=== PATIENT | female | born 1990 | race African-American/Black ===

== ENCOUNTER 2017-07-25 20:53 | Emergency (ER) | payer BC ==
--- NOTE | 2017-07-26 07:32 | ULT ---
FIRST TRIMESTER OBSTETRICAL ULTRASOUND: INDICATION: Followup examination. COMPARISON: Prior exam dated 07/23/17. FINDINGS: Thee is a single intrauterine gestation containing pole and yolk sac. Small subchorionic hemo rrhage is seen along the anterior and superior aspects of the gestational sac. They are similar in size to the prior exam. No heart tones are seen. The uterus measures 7.3 x 4.4 x 5.6 cm. The right ovary measures 2.5 x 1.5 x 2.8 cm. There is norm al flow to the right ovary. The left ovary is not seen. Estimated gestational age by ultrasound is 6 weeks and 0 days. Estimated due date by ultrasound is 03/20/08. IMPRESSION: 1. Single intrauterine gestational sac containing yolk sac and pole without associated heart tones. Estimated gestational age by ultrasound is 6 weeks and 0 days. 2. Small subchorionic hemorrhage seen along the superior aspect of the gestational sac appears mauro lar to the comparison study. POS: [facility]
== END 2017-07-26 00:04 | disposition home or self-care (01) ==
LOC: ERS 20:53
DX: O20.9 Hemorrhage in early pregnancy, unspecified (principal); Z3A.01 Less than 8 weeks gestation of pregnancy
CPT/HCPCS: 36415; 76856; 84702

== ENCOUNTER 2017-07-30 09:58 | Emergency (ER) | payer BC ==
[2017-07-30] MEDS ORDERED: Ondansetron ODT 4 MG TAB ONE (10:10)
== END 2017-07-30 11:37 | disposition home or self-care (01) ==
LOC: ERS 09:58
DX: O21.9 Vomiting of pregnancy, unspecified (principal); Z3A.01 Less than 8 weeks gestation of pregnancy
CPT/HCPCS: 99283; Q0162

== ENCOUNTER 2017-10-17 07:16 | Emergency (ER) | payer BC, OTHER, SELFPAY ==
[2017-10-17] MEDS ORDERED: Diazepam 5 MG TAB ONE (08:25)
[2017-10-17] MEDS ORDERED: Ketorolac Tromethamine 60 MG/2 ML VIAL ONE (08:26)
--- NOTE | 2017-10-17 09:26 | CT ---
CT OF CERVICAL SPINE WITHOUT CONTRAST: INDICATION: A 27-year-old female with severe left neck pain and spasm since 0530 this morning. The patient was s itting at a computer at work and had mild neck soreness for the past couple of days. The patient rep orts tingling in the left arm that has since resolved. The patient denies any injury. The pain is a ggravated with any movement. The patient denies any visual changes, back pain, or headache or other complaints. FINDINGS: There is some reversal of the normal cervical lordosis likely related to positioning. No acute fract ure or subluxation is evident. Craniocervical junction is normal-appearing. The prevertebral soft t issues appear within normal limits. Lung apices are clear. The visualized mastoid air cells are karlie ar. IMPRESSION: No acute abnormality. POS: [facility]
== END 2017-10-17 10:09 | disposition home or self-care (01) ==
LOC: ERS 07:16
DX: M62.838 Other muscle spasm (principal)
CPT/HCPCS: 72125; 96372; J1885

== ENCOUNTER 2018-03-04 07:51 | Emergency (ER) | payer OTHER, SELFPAY ==
[2018-03-04 08:50] LABS: Pregnancy Test - Urine (BHCG) Negative (Negative); Pregu Control Background? CLEAR/WHITE (CLR/WHITE); Pregu Control Bar Appear? YES (CONTROL BAR); Specific Gravity 1.032 (1.002-1.036)
--- NOTE | 2018-03-04 10:13 | RAD ---
RADIOGRAPH LEFT HIP TWO VIEWS: 03/04/2018 HISTORY: A 27-year-old female with chronic left hip pain. COMPARISON: None available. FINDINGS: There are two metallic pins in the left iliac bone, superior to the left acetabulum, medial to a tracy icated, irregularly-shaped, shallow osseous defect located lateral to the supraacetabular iliac bone. The medial aspect of at least one of the pins protrudes at least 2 cm medial to the medical cortica l bone, into the soft tissues of the pelvic ring. The entire pelvic ring is somewhat elongated in th e craniocaudal dimension and somewhat foreshortened in the transverse dimension. Fajardo's crook metallic plate with three screws is embedded in the bone of the intertrochanteric an d subtrochanteric proximal femur, with overlying osseous thickening. Femoral head contour is [place]. No significant hip joint space narrowing. No large subcapital osteophytes. IMPRESSION: 1. Status post open reduction and internal fixation of left proximal femur. 2. Pins within the left ilium, superior to the acetabulum, medial to a chronic osseous defect. 3. Atypical shape of the pelvic ring. POS: [facility]
[2018-03-04] MEDS ORDERED: Acetaminophen/Codeine 30-300mg Tablet ONE (10:32)
== END 2018-03-04 10:49 | disposition home or self-care (01) ==
LOC: ERS 07:51
DX: M25.552 Pain in left hip (principal)
CPT/HCPCS: 81025

== ENCOUNTER 2018-12-16 14:24 | Emergency (ER) | payer OTHER, SELFPAY ==
[2018-12-16] MEDS ORDERED: Ondansetron ODT 4 MG TAB ONE (15:02)
== END 2018-12-16 15:53 | disposition home or self-care (01) ==
LOC: ERS 14:24
DX: R07.2 Precordial pain (principal); I10 Essential (primary) hypertension; E03.9 Hypothyroidism, unspecified; F32.9 Major depressive disorder, single episode, unspecified; Z79.899 Other long term (current) drug therapy
CPT/HCPCS: 87081; 87430; 99283; Q0162

== ENCOUNTER 2021-03-28 06:19 | Emergency (ER) | payer SELFPAY ==
[2021-03-28] MEDS ORDERED: Ondansetron PF 4 MG/2 ML Vial ONE (07:12)
[2021-03-28] MEDS ORDERED: Clindamycin/D5W 900 mg/50 ml Premix Bag ONE (07:12)
[2021-03-28] MEDS ORDERED: Dexamethasone 4 MG TAB ONE (07:12)
[2021-03-28] MEDS ORDERED: Morphine 4 MG/ML VIAL ONE (07:12)
[2021-03-28 07:33] LABS: #Basophils 0.1 thou/uL (0.0-0.2); #Eosinphils 0.1 thou/uL (0.0-0.7); #Lymphocytes 1.4 thou/uL (1.20-3.40); #Monocytes 0.6 thou/uL (0.11-0.59); %Basophils 0.6 % (0.0-1.0); %Eosinophils 0.8 % (0.0-10.0); %Lymphocytes 15.4 % (21.0-51.0); %Monocytes 6.5 % (0.0-10.0); %Neutrophils 76.8 % (42.0-75.0); Hemoglobin 12.8 g/dL (12.0-16.0); Mean Corpuscular HGB CONC 33.8 g/dL (32.0-36.0); Mean Corpuscular Hemoglobin 30.1 pg (27.0-31.0); Mean Corpuscular Volume 89.1 fL (78.0-98.0); Mean Platelet Volume 9.5 fL (7.4-10.4); Platelet Count 217 thou/uL (130-400); RBC Distribution Width 11.5 % (11.5-14.5); Red Blood Cell (RBC) Count 4.26 mill/uL (4.20-5.40); White Blood Cell (WBC) Count 9.1 thou/uL (4.8-10.8)
[2021-03-28 08:02] LABS: ALT (SGPT) 12 U/L (8-55); AST (SGOT) 14 U/L (5-34); Alkaline Phosphatase 56 U/L (40-110); Anion Gap 12 mmol/L (10-20); BUN (Urea Nitrogen) 6 mg/dL (7.0-18.7); Bilirubin, Total 0.4 mg/dL (0.2-1.2); Calc. Creatinine Clearance 0 mL/min (70-130); Calcium 8.5 mg/dL (7.8-10.44); Carbon Dioxide 27 mmol/L (22-29); Chloride 104 mmol/L (98-107); Globulin 3.4 g/dL (2.4-3.5); Glucose 91 mg/dL (70-105); Potassium 3.9 mmol/L (3.5-5.1); Protein, Total 7.4 g/dL (6.0-8.3); Sodium 139 mmol/L (136-145)
== END 2021-03-28 09:02 | disposition home or self-care (01) ==
LOC: ERS 06:19
DX: K08.89 Other specified disorders of teeth and supporting structures (principal); R22.0 Localized swelling, mass and lump, head; M27.2 Inflammatory conditions of jaws; Z79.899 Other long term (current) drug therapy
CPT/HCPCS: 36415; 80053; 85025; 96365; 96375; J2270; J2405; J3490; J8540

== ENCOUNTER 2021-10-29 20:58 | Emergency (ER) | payer OTHER, SELFPAY ==
[2021-10-29] MEDS ORDERED: Acetaminophen 500 MG TAB ONE (22:39)
[2021-10-29] MEDS ORDERED: Ondansetron ODT 4 MG TAB ONE (22:39)
[2021-10-30 14:02] LABS: SARS-CoV-2 PCR by NAA DETECTED (NotDetected)
== END 2021-10-29 22:55 | disposition home or self-care (01) ==
LOC: ERS 20:58
DX: U07.1 COVID-19 (principal)
CPT/HCPCS: 99284; Q0162; U0003; U0005

== ENCOUNTER 2021-12-03 19:30 | Emergency (ER) | payer SELFPAY ==
[2021-12-03] MEDS ORDERED: Amoxicillin/Potassium Clav 875 MG TAB ONE (21:42)
[2021-12-03] MEDS ORDERED: Boostrix 0.5 ML (Tdap) VIAL ONE (21:42)
[2021-12-03] MEDS ORDERED: HYDROcodone/Acetaminophen 7.5/325 mg Tablet ONE (21:42)
== END 2021-12-03 23:10 | disposition home or self-care (01) ==
LOC: ERS 19:30
DX: S81.812A Laceration without foreign body, left lower leg, initial encounter (principal); W54.0XXA Bitten by dog, initial encounter; Z23 Encounter for immunization
CPT/HCPCS: 90471; 90715

== ENCOUNTER 2022-11-21 17:29 | Emergency (ER) | payer SELFPAY ==
[2022-11-21] MEDS ORDERED: Ketorolac Tromethamine 30 MG/ML VIAL ONE (18:33)
== END 2022-11-21 18:50 | disposition home or self-care (01) ==
LOC: ERS 17:29
DX: K04.7 Periapical abscess without sinus (principal)
CPT/HCPCS: 96372; 99283; J1885

== ENCOUNTER 2022-11-24 21:03 | Emergency (ER) | payer SELFPAY ==
[2022-11-24 21:39] LABS: #Eosinphils 0.1 thou/uL (0.0-0.7); #Lymphocytes 2.1 thou/uL (1.20-3.40); #Monocytes 0.5 thou/uL (0.11-0.59); #Neutrophils 5.3 thou/uL (1.40-6.50); %Eosinophils 1.6 % (0.0-10.0); %Lymphocytes 26.4 % (21.0-51.0); %Monocytes 6.1 % (0.0-10.0); Hemoglobin 12.4 g/dL (12.0-16.0); Mean Corpuscular HGB CONC 33.5 g/dL (32.0-36.0); Mean Corpuscular Volume 89.5 fl (78.0-98.0); Mean Platelet Volume 8.6 fL (7.4-10.4); Platelet Count 350 10x3/uL (130-400); RBC Distribution Width 11.7 % (11.5-14.5); Red Blood Cell (RBC) Count 4.12 mill/uL (4.20-5.40)
[2022-11-24 21:40] LABS: BHCG - Serum Negative (NEGATIVE); Pregs Control Background? CLEAR/WHITE (CLR/WHITE); Pregs Control Bar Appear? YES (CONTROL BAR)
[2022-11-24 21:56] LABS: ALT (SGPT) 14 U/L (8-55); AST (SGOT) 20 U/L (5-34); Alkaline Phosphatase 54 U/L (40-110); Anion Gap 14 mmol/L (10-20); BUN (Urea Nitrogen) 5 mg/dL (7.0-18.7); Bilirubin, Total 0.3 mg/dL (0.2-1.2); Calc. Creatinine Clearance 0 mL/min (70-130); Calcium 9.6 mg/dL (7.8-10.44); Carbon Dioxide 27 mmol/L (22-29); Chloride 103 mmol/L (98-107); Estimated GFR 100; Globulin 4.1 g/dL (2.4-3.5); Glucose 99 mg/dL (70-105); Potassium 3.6 mmol/L (3.5-5.1); Protein, Total 8.1 g/dL (6.0-8.3); Sodium 140 mmol/L (136-145)
== END 2022-11-24 22:26 | disposition home or self-care (01) ==
LOC: ERS 21:03
DX: K04.7 Periapical abscess without sinus (principal)
CPT/HCPCS: 36415; 80053; 84703; 85025; 99283

== ENCOUNTER 2023-02-12 23:25 | Emergency (ER) | payer BC, SELFPAY ==
[2023-02-12] MEDS ORDERED: Ketorolac Tromethamine 30 MG/ML VIAL ONE (23:55)
[2023-02-12] MEDS ORDERED: Dexamethasone 10 MG/ML VIAL ONE (23:55)
[2023-02-12] MEDS ORDERED: cefTRIAXone (ROCEPHIN) 1 GM VIAL ONE (23:55)
== END 2023-02-13 01:09 | disposition home or self-care (01) ==
LOC: ERS 23:25
DX: J36 Peritonsillar abscess (principal)
CPT/HCPCS: 96365; 96375; J0696; J1100; J1885